=== PATIENT | male | born 1950 | race Caucasian/White ===

== ENCOUNTER 2017-03-11 05:40 | Inpatient (IN) | payer BC, OTHER ==
--- NOTE | 2017-02-21 08:56 | PAT Medication Instructions ---
Service Date Feb 21, 2017. Current Home Medication List Amlodipine (Norvasc), 10 MG PO QAM Celecoxib (CeleBREX), 1 CAP PO QAM Esomeprazole Magnesium (Nexium), 1 CAP PO DAILY PRN for Heartburn Kajnvxrumpe-Vhakulxyqsa-Pvo C- (Glucosamine Chondroitin), 1 TAB PO qa Lisinopril (Zestril), 10 MG PO QAM Multivitamins/Minerals (Mvi With Minerals), 1 TAB PO QAM [place]-3 Fatty Acids (Fish Oil), 1 CAP PO QAM Potassium Gluconate (Gnc Potassium Gluconate 9), 1 TAB PO QAM Probiotic Product (Probiotic), 1 CAP PO QAM Vitamin B Cmplx/Vitc/Folic Ac (Nephrocaps), 1 CAP PO QAM Vitamin E (Topical) (Vitamin E), 2,000 UNITS PO QAM Zinc (Gnp Zinc Chelated), 1 TAB PO QAM [tumeric], 1 TAB PO QAM Medication Instructions For Your Scheduled Surgery -Check with your surgeon for instructions regarding: Celecoxib (CeleBREX), 1 CAP PO QAM - Hold the following medications 2 weeks prior to surgery: [tumeric], 1 TAB PO QAM [place]-3 Fatty Acids (Fish Oil), 1 CAP PO QAM Ulnemvyduqg-Ohcnacildbm-Kle C- (Glucosamine Chondroitin), 1 TAB PO qa Vitamin E (Vitamin E), 2,000 UNITS PO QAM - Hold the following medications the morning of surgery: Lisinopril (Zestril), 10 MG PO QAM Potassium Gluconate (Gnc Potassium Gluconate 9), 1 TAB PO QAM Probiotic Product (Probiotic), 1 CAP PO QAM Vitamin B Cmplx/Vitc/Folic Ac (Nephrocaps), 1 CAP PO QAM Zinc (Gnp Zinc Chelated), 1 TAB PO QAM Multivitamins/Minerals (Mvi With Minerals), 1 TAB PO QAM - Take the following medications the morning of surgery with a sip of water: Amlodipine (Norvasc), 10 MG PO QAM Esomeprazole Magnesium (Nexium), 1 CAP PO DAILY PRN for Heartburn (if needed) - Take the following medications as scheduled the night before surgery: Esomeprazole Magnesium (Nexium), 1 CAP PO DAILY PRN for Heartburn (if needed) If you have any questions please call us at [phone] or [phone] or [phone]
--- NOTE | 2017-02-21 09:39 | DIAGNOSTIC IMAGING REPORT ---
CHEST PREADMISSION(PA/LAT) CLINICAL HISTORY: 66 years-old Male presenting with preoperative assessment. TECHNIQUE: PA and lateral views of the chest were obtained. COMPARISON: 12/10/2011. FINDINGS: Cardiomediastinal silhouette normal. Mild elevation of the right hemidiaphragm, new from prior. Lungs and pleural spaces clear. Osseous structures normal. Upper abdomen normal. IMPRESSION: 1. No acute cardiopulmonary disease. Electronically signed by: Vinicius Guillen M.D. 02/21/2017 9:38 AM Dictated Date/Time: 02/21/2017 9:37 AM
[2017-02-21 10:28] LABS: BASO % 1.2 %; BASO ABS # 0.11 K/uL (0-0.2); COMPLETE YES; EOS % 3.8 %; HEMATOCRIT 41.5 % (42-52); IG% 0.2 %; LYMPH % 29.7 %; LYMPH ABS # 2.68 K/uL (1.2-3.4); MEAN CELL VOLUME 84.7 fL (80-100); MEAN CORPUSCULAR HGB CONC 35.4 g/dl (32-36); MEAN PLATELET VOLUME 9.9 fL (7.4-10.4); MONO % 13.4 %; NEUT % 51.7 %; PLATELET COUNT 250 K/uL (130-400); WHITE BLOOD COUNT 9.03 K/uL (4.8-10.8)
[2017-02-21 10:40] LABS: URINE APPEARANCE CLEAR (CLEAR); URINE BILIRUBIN NEG (NEG); URINE COLOR DK YELLOW; URINE NITRITE NEG (NEG); URINE SPECIFIC GRAVITY 1.029 (1.000-1.030); UROBILINOGEN NEG (NEG)
[2017-02-21 10:45] LABS: BUN/CREATININE RATIO 21.1 (10-20); CALCIUM 9.3 mg/dl (8.5-10.1); CREATININE 1.4 mg/dl (0.60-1.40); POTASSIUM 4.3 mmol/L (3.5-5.1)
[2017-02-21 10:46] LABS: PROTHROMBIN TIME (PATIENT) 10.3 SECONDS (9.0-12.0)
[2017-02-21 11:01] LABS: MANUAL MICROSCOPIC REQUIRED? NO; REVIEW REQ? NO
--- NOTE | 2017-03-10 08:20 | History and Physical ---
History & Physical Documentation Date Mar 10, 2017. Chief Complaint Left knee pain HPI (Knee Pain) Pain Location: Anterior knee, Lateral knee, Posterior knee, Medial knee Duration: Years Adversely Affecting: ADL's, Recreation Symptoms Include: + Locking, + Giving way History of Injury/Trauma: No Non-Surgical Therapies: Behavior modification, Weight management, Splinting / bracing, Physical therapy, other therapy Mechanical Assistive Devices: none Joint Injection: Steroid, Visco Past Medical/Surgical History [place] [address] whitt Additional History Hepatic Disease: No Endocrine Disorder: No Kidney Disease: No Hypertension: Yes Heart Disease: No Bleeding Tendencies: No Family History Mr Meadows is a 66 year old male who complains of left knee pain. He presents with pain on the left side. He states that the symptoms have been chronic non- traumatic. Patient denies any injuries. The symptoms occur constantly with intermittent worsening. The problem is worse. Currently the patient states that the symptoms are moderate-severe. The pain is described as aching, discomforting , throbbing, sharp and shooting. The symptoms occur continuously. He rates his current pain as 4/10. The symptoms are aggravated by ascending stairs, daily activities, descending stairs, exercise, first steps while awake, kneeling, movement, repetitive activities, sleeping on the affected side and walking. Destin states that the symptoms are relieved by no specific activity. In addition to left knee pain the patient is also experiencing decreased mobility, difficulty bending, difficulty going to sleep, limping, nighttime awakening, pain, stiffness, tenderness and weakness. Pertinent negatives include chills and fever. The patient has had a previous x-ray. X-rays obtained today in our office. Prior NSAIDs include Celebrex. Patient has had previous therapy. He attended physical therapy. Dr. Whitt performed right knee TKA, pts right knee is doing well since that surgery. Social History Smoking Status: Former Smoker Allergies Coded Allergies: Ether (Verified Adverse Reaction, Unknown, nausea and vomiting, 02/21/17) Hydrocodone (Verified Adverse Reaction, Unknown, Migraines, 02/21/17) Home Medications Scheduled Amlodipine (Norvasc), 10 MG PO QAM Celecoxib (CeleBREX), 1 CAP PO QAM Pgbyychebfa-Pnixosttvom-Hhy C- (Glucosamine Chondroitin), 1 TAB PO qa Lisinopril (Zestril), 10 MG PO QAM Multivitamins/Minerals (Mvi With Minerals), 1 TAB PO QAM Rison-3 Fatty Acids (Fish Oil), 1 CAP PO QAM Potassium Gluconate (Gnc Potassium Gluconate 9), 1 TAB PO QAM Probiotic Product (Probiotic), 1 CAP PO QAM Vitamin B Cmplx/Vitc/Folic Ac (Nephrocaps), 1 CAP PO QAM Vitamin E (E 1000), 2 CAP PO QAM Zinc (Gnp Zinc Chelated), 1 TAB PO QAM [tumeric], 1 TAB PO QAM Scheduled PRN Esomeprazole Magnesium (Nexium), 1 CAP PO DAILY PRN for Heartburn Review of Systems Constitutional: No fever, No chills, No sweats, No weight loss, No weakness, No fatigue, No problem reported Eyes: No worsening of vision, No eye pain, No redness, No discharge, No diplopia, No problem reported ENT: No hearing loss, No unusual epistaxis, No nasal symptoms, No sore throat, No tinnitus, No dental problems, No trouble swallowing, No problem reported Respiratory: No cough, No sputum, No wheezing, No shortness of breath, No dyspnea on exertion, No dyspnea at rest, No hemoptysis, No problem reported Cardiovascular: No chest pain, No orthopnea, No PND, No edema, No claudication , No palpitations, No problem reported Abdomen: No pain, No nausea, No vomiting, No diarrhea, No constipation, No GI bleeding, No problem reported Physical Exam Skin: warm/dry, no rash ENT: normal ENT inspection, pharynx normal Neck: supple, no adenopathy, trachea midline Respiratory/Chest: lungs clear, normal breath sounds, no respiratory distress Cardiovascular: regular rate, rhythm, no edema, no murmur Addiitonal Comments: Left Knee Physical Exam Exam Findings Details Ankle ROM L * Active ROM - Factors: normal, Description: active pain free range of motion. Passive ROM - Factors: normal, Description: passive pain free range of motion. Hip ROM L * Active ROM - Factors: normal, Description: active pain free range of motion. Passive ROM - Factors: normal, Description: passive pain free range of motion. Knee ROM L * Active ROM - Flexion: 100 degrees, Extension: 5 degrees, Factors: pain, Description: Active painful ROM. Passive ROM - Factors: pain. Strength LE Normal Strength Description - Normal lower extremity: Bilateral. Knee * Gait: Limp. Alignment - Left: varus. Ecchymosis - Left: negative. Effusion - Left: mild. Swelling - Left: mild. Maximum tenderness - Left: Medial Joint Line. Patella exam - Crepitation - Left: mild. Patella position - Left: neutral. [facility]'s - lateral - Left: Positive. [facility]'s - medial - Left: Positive. Knee Normal Inspection - Atrophy - Left: Absent. Skin - Left: Normal. Patella exam - Apprehension - Left: Negative. Q-angle - Left: Normal. Gloria's - Left: Negative. Posterior drawer - Left: Negative. Anterior drawer - Left: Negative. Valgus stress - Left: Negative. Varus stress - Left: Negative. Extensor lag - Left: Normal. Neurovascular LE Normal Neurovascular examination including reflexes, sensation , and pulses is within normal limits. Radiology Plain Films: Osteophytes, Subchondral sclerosis, pertinent finding (joint space narrowing, osteophyte formation, varus alignment. ) Plain Films Joint Space: [id number], Severe narrowing Diagnosis & Plan Diagnosis & Plan (1) Arthritis of left knee Plan: TKA Further care discussed with patient and at this point in time has failed conservative measures and would like to proceed with a left total knee replacement. Plan on discharge will be home with outpatient physical therapy. DVT prophalaxis with TEDs, SCDs and will also place on aspirin 81 mg p.o. b.i.d. for a month postop. Patient will have follow up appointment in our office two weeks post op for staple/suture removal and re-evaluation. Patient otherwise has no other questions or concerns.
[2017-03-11] VITALS (9 sets, daily range): BP systolic 129–176; BP diastolic 71–97; PULSE 59–68; TEMP 36.4–36.8; O2SAT 95–99; Ht 195.6 cm; Wt 115.9 kg
[~2017-03-11] VITALS: Ht 195.6 cm; Wt 115.9 kg
[~2017-03-11 05:40] MED LIST: AMLO-114 PO; B-CO1CAP17 PO; CLB/200 PO; GLUCTAB7 PO; LISI-461 PO; MISCCAP80 PO; MULT-513 PO; NXM/40 PO; OMEGCAP2 PO; POTA1TAB94 PO; VITA1CAP4 PO; ZINC1TAB PO; tumeric PO
[2017-03-11] MEDS ORDERED: CEFAZOLIN 2000 MG/60 ML D5W 60 ML IV SCH (06:00)
[2017-03-11] MEDS ORDERED: CeleBREX 200 MG CAP PO SCH (06:00)
[2017-03-11] MEDS ORDERED: METOCLOPRAMIDE HCL 10 MG TAB PO SCH (06:00)
[2017-03-11] MEDS ORDERED: DEXAMETHASONE 4 MG TAB PO SCH (06:00)
[2017-03-11] MEDS ORDERED: LACTATED RINGER'S 1000ML 500 ML IV ONE (06:00)
[2017-03-11] MEDS ORDERED: ROPIVACAINE 5MG/ML 30 ML 150 MG, BUPIVACAINE/EPINEPHR 0.5% MPF 30 ML, KETOROLAC TROMETH... INFIL SCH ×7 (06:00)
[2017-03-11] MEDS ORDERED: LACTATED RINGER'S 1000ML 1,000 ML IV SCH (06:00)
[2017-03-11] MEDS ORDERED: FAMOTIDINE 20 MG TAB PO SCH (06:00)
[2017-03-11] MEDS ORDERED: ACETAMINOPHEN 500 MG TAB PO SCH (06:00)
[2017-03-11] MEDS ORDERED: LACTATED RINGER'S 1000ML IV SCH (06:00)
[2017-03-11] MEDS: TRANEXAMIC ACID INJ 1,000 MG in SODIUM CHLORIDE 0.9% 100ML 100 ML IV SCH ×2 (06:30→07:51)
[2017-03-11] MEDS ORDERED: BUPIVACAINE 0.5 % 5 MG/1 ML PF 10ML VIAL ONE (06:50)
[2017-03-11] MEDS ORDERED: BUPIVACAINE 0.25% 30 ML VIAL ONE (06:50)
[2017-03-11] MEDS ORDERED: ORTHO JOINT ANESTHETIC ONE (07:05)
[2017-03-11] MEDS ORDERED: BACITRACIN 50000 UNIT VIAL ONE (07:05)
[2017-03-11] MEDS ORDERED: POVIDONE-IODINE OP SOLN 30 ML BTL ONE (07:05)
--- NOTE | 2017-03-11 07:16 | History & Physical Bridge Note ---
H&P Re-Evaluation Bridge Note: I have examined the patient, reviewed the History & Physical and in the interval since the performance of the History & Physical I have noted the following changes of clinical significance: No changes noted
[2017-03-11] MEDS ORDERED: MIDAZOLAM HCL 1 MG/ML 2ML VIAL ONE (07:42)
[2017-03-11] MEDS ORDERED: EpHEDrine SULFATE INJ 50 MG/ML AMP IV PRN (09:15)
[2017-03-11] MEDS ORDERED: LABETALOL HCL IV 5 MG/ML 20ML IV PRN (09:15)
[2017-03-11] MEDS ORDERED: ONDANSETRON INJ 2 MG/ML 2 ML VIAL IV PRN ×2 (09:15→10:30)
[2017-03-11] MEDS ORDERED: MEPERIDINE HCL 25 MG/ML CARP IV PRN (09:15)
[2017-03-11] MEDS ORDERED: HYDROmorphone INJ 1 MG/ML SYR IV PRN (09:15)
[2017-03-11] MEDS ORDERED: FENTANYL CITRATE INJ 50 MCG/1 ML 2 ML VIAL IV PRN (09:15)
[2017-03-11] MEDS ORDERED: ATROPINE SULFATE 0.1 MG/ML 5ML SYR IV PRN (09:15)
[2017-03-11] MEDS ORDERED: LIDOCAINE HCL 2% 2 ML VIAL (20MG/ML) ONE (09:25)
[2017-03-11] MEDS ORDERED: PROPOFOL IV EMULSION 10 MG/ML 20 ML VIAL IV ONE (09:25)
--- NOTE | 2017-03-11 09:52 | [facility] Operative Report ---
Operative Report Operative Date Mar 11, 2017. Pre-Operative Diagnosis Left knee osteoarthritis Post-Operative Diagnosis Left knee osteoarthritis Procedure(s) Performed Left total knee arthroplasty utilizing Yoo & Nephew journey 2 patient matched total knee arthroplasty size 8 femur 6 tibia 10 Yanna [address] Velazquez Risk Control Director Surgeon(s) Heidi Allison PA-C Estimated Blood Loss 5ML Findings Patient presents with severe end-stage Tri-Chlor milligrams joint disease of left knee failing attempts at conservative management including injections anti- inflammatories relative rest patient subchondral sclerosis medial osteophyte cystic changes presents for total knee arthroplasty Specimens A: left knee bone and tissue Complication(s) None Disposition Recovery Room / PACU Indications Patient failed a conservative management including physical therapy anti- inflammatories relative rest activity modification injections presents for total knee Orthoplast after thorough discussion regarding risk complications Description of Procedure After proper prepping and draping of the left lower extremity anterior midline incision was made over the region of the extensor extensor mechanism after meticulous hemostasis was obtained and maintained in subcutaneous tissues a medial parapatellar incision was made The patella was subluxed lateralward the medial lateral gutter were cleaned from any hypertrophic synovitis and scar tissue of the distal femoral block was placed and the distal femoral osteotomy cut was made subsequently the chamfers anterior and posterior osteotomy cuts were made utilizing the 4-in-1 block the tibia was subsequently subluxed anteriorward medial and ateral meniscal remnants were excised in their entirety remnants of the anterior and posterior cruciate ligaments were excised in their entirety excellent exposure of the proximal tibia was obtained the tibial osteotomy guide was placed on the proximal tibial osteotomy cut was made once again the knee was irrigated with copious amounts of sterile saline solution the patella was subsequently everted lateralward thickened scar tissue around the patella was removed the patella was subsequently cut utilizing a freehand technique and was drilled prepared for final preparation and placement of patella socially flexion-extension gaps were checked and the equal and symmetric trials were placed to the appropriate femoral and tibial trials with poly-spacer being placed for equal flexion and extension gaps and full range of motion including extension to 0 and flexion to 140 the trial components after having been taken to recovery range of motion was subsequently removed meticulous hemostasis was obtained and maintained subsequently a knee block injection of joint cocktail including ropivacaine 0.5% 150 mg. Bupivacaine 0.5 % epinephrine 1-200,030 mL's toradol 30 mg dexamethasone 4 mg ketamine 10 mg clonidine 100 micrograms normal saline solution 30 mg was infiltrated into the soft tissues of the posterior knee medial lateral gutters and periosteal synovium special attention was paid to protect neurovascular structures at all times subsequently trial components having been removed the knee was irrigated with sterile saline solution. debris was removed the proximal tibia was subsequently prepared and was made ready for the placement of the tibial component tibial component was also cemented and tamped into position the femoral component was subsequently placed and cemented in the position the patellar component was subsequently cemented in position because hemostasis once again obtained and maintained wound having been thoroughly irrigated with debridement and debridement lavage was performed as well as a medial parapatellar incision closed with #1 Vicryl in interrupted fashion subcutaneous was closed with #2 Vicryl skin was closed with skin clips. PA-C was necessary for prepping and drapping as well as wound closure of deep fascia Sub cutaneous tissue and skin and was necessary for the case. A sterile compressive dressing was placed patient was taken to recovery in stable condition of report dictated by Marcus I attest to the content of the Intraoperative Record and any orders documented therein. Any exceptions are noted below. I attest to the content of the Intraoperative Record and any orders documented therein. Any exceptions are noted below.
[2017-03-11] MEDS ORDERED: ZOLPIDEM TARTRATE 5 MG TAB PO PRN (10:30)
[2017-03-11] MEDS ORDERED: MoRPHine SULFATE 2 MG/ML CARP IV PRN (10:30)
[2017-03-11] MEDS ORDERED: ALUMINUM/MAGNESIUM/SIMETH (MAALOX MAX) 30 ML UDC PO PRN (10:30)
[2017-03-11] MEDS ORDERED: BISACODYL 10 MG SUPP PR PRN (10:30)
[2017-03-11] MEDS ORDERED: MAGNESIUM HYDROXIDE SUSP 30 ML UDC PO PRN (10:30)
[2017-03-11] MEDS ORDERED: DiphenhydrAMINE HCL 50 MG/ML VIAL IV PRN (10:30)
[2017-03-11] MEDS ORDERED: SOD PHOSPHATE/SOD BIPHOSPHATE ENEMA 132 ML BTL PR PRN (10:30)
--- NOTE | 2017-03-11 10:57 | DIAGNOSTIC IMAGING REPORT ---
LEFT KNEE 2 VIEWS CLINICAL HISTORY: Postoperative examination COMPARISON: None. DISCUSSION: There are postsurgical changes of a total left knee arthroplasty and patellar resurfacing. There are no acute fractures. The femoral and tibial components appear well seated. Overlying surgical drains are evident. There is air within the soft tissues consistent with recent surgery. THERE IS NO EVIDENCE FOR SOFT TISSUE SWELLING. IMPRESSION: Postsurgical changes of a total left knee arthroplasty. Electronically signed by: Irvin Larson M.D. 03/11/2017 10:56 AM Dictated Date/Time: 03/11/2017 10:53 AM
--- NOTE | 2017-03-11 11:33 | Anesthesiology Progress Note ---
Anesthesia Post Op Note Date & Time Mar 11, 2017 at 11:33 Vital Signs Pain Intensity: 0 Vital Signs Past 12 Hours Date Time Temp Pulse Resp B/P (MAP) Pulse Ox O2 Delivery O2 Flow Rate FiO2 03/11/17 11:05 36.4 58 19 129/78 97 Nasal Cannula 2 03/11/17 10:55 56 22 98 03/11/17 10:55 56 22 03/11/17 10:51 105/82 03/11/17 10:50 56 17 03/11/17 10:50 56 17 97 03/11/17 10:46 155/78 03/11/17 10:45 55 18 03/11/17 10:45 55 18 98 03/11/17 10:41 130/74 03/11/17 10:40 58 18 98 03/11/17 10:40 59 18 03/11/17 10:37 136/78 03/11/17 10:35 67 15 03/11/17 10:35 66 15 97 03/11/17 10:31 138/61 03/11/17 10:30 60 19 99 03/11/17 10:30 59 19 03/11/17 10:26 142/88 03/11/17 10:25 61 19 03/11/17 10:25 63 19 100 03/11/17 10:21 143/84 03/11/17 10:20 63 03/11/17 10:20 36.2 63 16 143/84 97 Oxymask 10 03/11/17 10:20 63 97 03/11/17 05:55 36.4 67 18 176/97 96 Room Air Notes Mental Status: alert / awake / arousable, participated in evaluation Pt Amnestic to Procedure: Yes Nausea / Vomiting: adequately controlled Pain: adequately controlled Airway Patency, RR, SpO2: stable & adequate BP & HR: stable & adequate Hydration State: stable & adequate Neuraxial Anesthesia: was administered, sensory block is resolving Anesthetic Complications: no major complications apparent
[2017-03-11] MEDS ORDERED: KETOROLAC TROMETHAMINE 15 MG/ML VIAL IV. SCH (12:00)
[2017-03-11] MEDS: D5W AND 1/2NSS + 20MEQ KCL 1,000 ML IV SCH ×2 (12:37→21:28)
[2017-03-11] MEDS: KETOROLAC TROMETHAMINE 15 MG/ML VIAL IV. SCH ×3 (12:38→23:56)
[2017-03-11] MEDS: ACETAMINOPHEN 500 MG TAB PO SCH ×2 (13:34→21:27)
[2017-03-11] MEDS: OXYCODONE HCL IR 5 MG TAB (IMMEDIATE RELEASE) PO PRN ×2 (16:06→21:25)
[2017-03-11] MEDS: CEFAZOLIN IV 2,000 MG in SYRINGE 0 ML IV SCH (17:02)
[2017-03-11] MEDS: ASPIRIN 81 MG ECTAB PO SCH (20:42)
[2017-03-11] MEDS ORDERED: SENNA 8.6 MG TAB PO SCH (21:00)
[2017-03-12] MEDS: CEFAZOLIN IV 2,000 MG in SYRINGE 0 ML IV SCH (00:50)
[2017-03-12 04:10] VITALS: BP 129/74; PULSE 62; TEMP 36.4; O2SAT 95
[2017-03-12] MEDS: ACETAMINOPHEN 500 MG TAB PO SCH (05:58)
[2017-03-12] MEDS: KETOROLAC TROMETHAMINE 15 MG/ML VIAL IV. SCH (06:00)
[2017-03-12] MEDS: D5W AND 1/2NSS + 20MEQ KCL 1,000 ML IV SCH (06:39)
[2017-03-12 07:15] LABS: HEMATOCRIT 38.4 % (42-52); MEAN CELL VOLUME 85.7 fL (80-100); MEAN CORPUSCULAR HEMOGLOBIN 30.1 pg (25-34); MEAN CORPUSCULAR HGB CONC 35.2 g/dl (32-36); MEAN PLATELET VOLUME 9.5 fL (7.4-10.4); PLATELET COUNT 249 K/uL (130-400); RED BLOOD COUNT 4.48 M/uL (4.7-6.1); WHITE BLOOD COUNT 20.29 K/uL (4.8-10.8)
[2017-03-12 07:18] VITALS: BP 150/78; PULSE 65; TEMP 36.5; O2SAT 96
[2017-03-12] MEDS ORDERED: DEXAMETHASONE 4 MG TAB PO SCH (07:30)
[2017-03-12 07:47] LABS: CALCIUM 8.8 mg/dl (8.5-10.1); CREATININE 1.48 mg/dl (0.60-1.40); POTASSIUM 4.1 mmol/L (3.5-5.1)
--- NOTE | 2017-03-12 08:09 | Orthopedic Progress Note ---
Orthopedic Progress Note Date of Service Mar 12, 2017. Subjective Post OP Day: 1 Reports: feeling well, Denies: chest pain, SOB, nausea / vomiting, light headedness, calf pain Objective calves soft nontender, N/V intact, capillary refill less than 2 sec., dressing C /D/I, A&O x3, toes mobile, hemovac drainage (345/200 cc per shift) Date Time Temp Pulse Resp B/P (MAP) Pulse Ox O2 Delivery O2 Flow Rate FiO2 03/12/17 07:18 36.5 65 16 150/78 (102) 96 Room Air 03/12/17 04:10 36.4 62 16 129/74 (92) 95 Room Air 03/12/17 00:00 Room Air Nasal Cannula 03/11/17 23:30 36.4 62 16 129/72 (91) 98 Room Air 03/11/17 20:10 36.4 62 17 151/77 (101) 98 Room Air 03/11/17 15:01 36.5 63 17 137/79 (98) 99 Room Air 03/11/17 14:35 36.4 65 17 160/78 (105) 95 Nasal Cannula 2.0 03/11/17 13:28 36.8 64 18 142/80 (100) 98 Nasal Cannula 2.0 03/11/17 12:30 68 17 132/73 (92) 98 03/11/17 11:58 36.4 59 17 142/75 (97) 98 Nasal Cannula 2.0 03/11/17 11:30 Nasal Cannula 2.0 03/11/17 11:30 36.5 59 16 155/71 (99) 97 Nasal Cannula 2.0 03/11/17 11:30 97 Nasal Cannula 2.0 03/11/17 11:05 36.4 58 19 129/78 97 Nasal Cannula 2 03/11/17 10:55 56 22 98 03/11/17 10:55 56 22 03/11/17 10:51 105/82 03/11/17 10:50 56 17 03/11/17 10:50 56 17 97 03/11/17 10:46 155/78 03/11/17 10:45 55 18 03/11/17 10:45 55 18 98 03/11/17 10:41 130/74 03/11/17 10:40 58 18 98 03/11/17 10:40 59 18 03/11/17 10:37 136/78 03/11/17 10:35 67 15 03/11/17 10:35 66 15 97 03/11/17 10:31 138/61 03/11/17 10:30 60 19 99 03/11/17 10:30 59 19 03/11/17 10:26 142/88 03/11/17 10:25 61 19 03/11/17 10:25 63 19 100 03/11/17 10:21 143/84 03/11/17 10:20 63 03/11/17 10:20 36.2 63 16 143/84 97 Oxymask 10 03/11/17 10:20 63 97 Laboratory Results 24 Hours: Test 03/12/17 06:57 Hematocrit 38.4 % Hemoglobin 13.5 g/dL Assessment & Plan Assessment: POD#1 sp left TKA Plan: PT/OT DVt Proph- ASA 81mg bid Pain management- Annmarie, Celebrex, Tylenol DC planning- DC home today with outpatient PT. Plan to go to [place] office tomorrow for drain removal.
--- NOTE | 2017-03-12 08:12 | Discharge Instructions ---
Discharge Instructions Date of Service Mar 12, 2017. Admission Reason for Admission: Left Knee Osteoarthritis Discharge Discharge Diagnosis / Problem: sp left TKA Discharge Goals Goal(s): Decrease discomfort, Improve function, Increase independence Activity Recommendations Activity Limitations: per Instructions/Follow-up section . Instructions / Follow-Up Instructions / Follow-Up ACTIVITY RECOMMENDATIONS: SELF CARE INSTRUCTIONS AFTER TOTAL KNEE REPLACEMENT A. You may need to continue a physical therapy program after discharge from the hospital. There are several options available to you. Your doctor will assist you in selecting the best one for you. 1. An out-patient facility 2 to 3 times a week for therapy or home therapy. 2. Continue working on all exercises taught to you in the hospital. Your goals should be to increase bending of your knee to 90 degrees and beyond and to fully straighten your knee. B. You may progress at your own pace from walking with a walker or crutches to a cane; then to no assistive devices. C. Make walking a part of your daily routine. Be up as much as comfortable with rest periods throughout the day. Rest with leg elevation is very important. Use the ice wrap frequently for the first 3-4 weeks. D. There are no restrictions on activities. You may ride in a car, shop, participate in tractor engine assembler and all social activities. E. Wear the long elastic stockings (HANNAH hose) 20 hours a day for 2 weeks after surgery. They can be removed several times a day for laundering and for a bath. F. You may shower, no tub baths until cleared by your doctor. SPECIAL CARE INSTRUCTIONS: VERY IMPORTANT TO READ AND REVIEW A. There are a few signs you need to watch for after you are home. Call [facility] if you notice any of the followin. Increased severe knee pain. Some pain is expected especially when you exercise. 2. Increased swelling in your leg or knee; pain or swelling of the calf muscle in either lower leg. 3. Any fluid drainage from the incision. 4. Shortness of breath or chest pain. B. Please call [facility] at if you have any concerns or questions about your operation or recovery. The doctor or his nurse will return your call promptly. C. You must take antibiotics before dental work, bladder, bowel or other surgery. Your doctor will provide you with a permanent care to carry describing this precaution. IMPORTANT: * REMEMBER TO TAKE ASPIRIN, 81 MG, TWICE DAILY FOR 4 WEEKS UNLESS OTHERWISE DIRECTED. THIS IS YOUR BLOOD THINNER. * HIGH RISK PATIENTS MAY BE PRESCRIBED A STRONGER BLOOD THINNER. THIS WILL BE PROVIDED AT DISCHARGE. * CALL IF INCREASED PAIN, REDNESS, DRAINAGE OR FEVER GREATER THAT 101. * WEAR HANNAH HOSE 20 HOURS PER DAY FOR 2 WEEKS. DERMABOND Prineo- This is a mesh tape dressing that is covered with glue. It should remain in place until the incision is properly healed, usually 10-14 days. This dressing is designed to naturally slough off. You may trim the excess mesh tape as it peels off. Incision may be briefly wet in a shower. Dry immediately by blotting with a clean, dry towel. Do not bath or swim until instructed by your doctor. Do not scratch, rub, or pick at the dressing. Do not apply any topical ointments or lotions until dressing is completely removed and/or instructed by your doctor. There may be a small piece of suture material at one end of your incision. Do not pull or trim this. If it is bothersome or catching on clothing, you may cover it with a band-aid. FOLLOW UP VISIT: If appointment is not already scheduled: Please call [facility] to make a follow-up appointment for 2 weeks after your surgery at . PLEASE GO TO OUR [facility] OFFICE 03/13/17 AT 10:00AM FOR DRAIN REMOVAL. ASK FOR MARA. Current Hospital Diet Patient's current hospital diet: Regular Diet Discharge Diet Recommended Diet: Regular Diet Procedures Procedures Performed: Left total knee arthroplasty utilizing Yoo & Nephew journey 2 patient matched total knee arthroplasty size 8 femur 6 tibia 10 Yanna 35 oval patella Pending Studies Studies pending at discharge: no Medical Emergencies . Who to Call and When: Medical Emergencies: If at any time you feel your situation is an emergency, please call 911 immediately. . Non-Emergent Contact Non-Emergency issues call your: Surgeon . "Provider Documentation" section prepared by Jess Allison. . VTE Core Measure Inpt VTE Proph given/why not?: Other Anticoagulation, T.E.D. Stockings, SCD's [place] Drug Monitoring Program Search Results: patient reviewed within database, no issues identified
[2017-03-12] MEDS ORDERED: ONDA8TAB6 PO (08:28)
[2017-03-12] MEDS ORDERED: CLB/200 PO (08:28)
[2017-03-12] MEDS ORDERED: ACET-24 PO (08:28)
[2017-03-12] MEDS ORDERED: ASPEC81 PO (08:28)
[2017-03-12] MEDS ORDERED: SNK PO (08:28)
[2017-03-12] MEDS ORDERED: RXC5 PO (08:28)
[2017-03-12] MEDS ORDERED: MULTIVITAMIN TAB PO SCH (09:00)
[2017-03-12] MEDS ORDERED: PANTOprazole SOD 40 MG TAB PO SCH (09:00)
[2017-03-12] MEDS ORDERED: AMLODIPINE BESYLATE 5 MG TAB PO SCH (09:00)
[2017-03-12] MEDS ORDERED: LISINOPRIL 10 MG TAB PO SCH (09:00)
[2017-03-12] MEDS: ASPIRIN 81 MG ECTAB PO SCH (09:20)
[2017-03-12 10:45] VITALS: BP 167/79; PULSE 69; TEMP 36.3; O2SAT 96
[2017-03-12 12:05] VITALS: BP 167/79; PULSE 69; TEMP 36.3; O2SAT 96
[2017-03-12] MEDS ORDERED: CeleBREX 200 MG CAP PO SCH (21:00)
== END 2017-03-12 13:50 | disposition home or self-care (01) | DRG 470 ==
LOC: C.ACU 05:40 → C.3E 06:45 → ENRESERV 11:02
PROVIDERS: ADMIT Orthopaedic Surgery; ATTEND Orthopaedic Surgery
PROC: 0SRD0J9 Replacement of Left Knee Joint with Synthetic Substitute, Cemented, Open Approach (ICD-10-PCS; principal; 2017-03-11 08:15)
DX: M17.12 Unilateral primary osteoarthritis, left knee (principal); I10 Essential (primary) hypertension; E66.9 Obesity, unspecified; Z79.899 Other long term (current) drug therapy; Z96.651 Presence of right artificial knee joint; Z87.891 Personal history of nicotine dependence; Z68.30 Body mass index [BMI] 30.0-30.9, adult